=== PATIENT | male | born 1990 | race Caucasian/White ===

== ENCOUNTER 2020-04-02 10:32 | Emergency (ER) | payer OTHER, SELFPAY ==
[2020-04-02] VITALS (14 sets, daily range): BP systolic 140–168; BP diastolic 66–125; PULSE 73–93; RESP 10–20; TEMP 36.4; O2SAT 98–100
--- NOTE | ~2020-04-02 | XR_ITS ---
EXAMINATION: XR chest 2V EXAM DATE: 04/02/2020 11:20 INDICATION: Midsternal chest pressure, gas. COVID diagnosed one week ago. TECHNIQUE: Frontal and lateral projections of the chest obtained and reviewed. Comparison is made to prior examination from 04/25/2019. FINDINGS: The lungs are clear. There are no pleural effusions. The cardiomediastinal silhouette is within normal limits. There is no pneumothorax suspected. The bones and soft tissues are unremarkab le. IMPRESSION: No focal airspace disease. Reviewed, dictated and finalized at location A. ECT MANAGEMENT IT SPECIALIST IMPRESSION: No focal airspace disease.
--- NOTE | 2020-04-02 10:37 | ECG_ITS ---
Measurements Intervals Stanley Rate: 79 P: 50 HI: 122 QRS: 53 QRSD: 95 T: 49 QT: 334 QTc: 384 Interpretive Statements SINUS RHYTHM NORMAL ECG Electronically Signed On 04-02-2020 13:24:31 HAZARDOUS MATERIALS DRIVER by Mariano Villatoro D.O.
[2020-04-02 11:10] LABS: Basophils Absolute Auto 0.1 K/mm3 (0.0-0.1); Basophils Percent Auto 0.7 % (0.2-1.2); Eosinophils Absolute Auto 0.5 K/mm3 (0-0.3); Eosinophils Percent Auto 5.2 % (0-4.4); Hematocrit 45.4 % (42.0-52.0); Hemoglobin 15.7 g/dL (14.0-18.0); Immature Granulocyte Absolute 0.04 K/mm3 (0.00-0.031); Immature Granulocyte Percent A 0.5 % (0-0.5); Lymphocytes Absolute Auto 1.82 K/mm3 (0.9-3.2); Lymphocytes Percent Auto 20.5 % (18.3-44.2); Mean Corpuscular HGB Conc 34.6 g/dl (32-36); Mean Corpuscular Hemoglobin 30.4 pg (26-34); Mean Platelet Volume 9.6 fl (7.4-10.4); Monocytes Absolute Auto 0.7 K/mm3 (0.1-0.6); Monocytes Percent Auto 7.7 % (2.6-8.5); Neutrophils Absolute Auto 5.8 K/mm3 (1.3-6.7); Neutrophils Percent Auto 65.4 % (45.5-73.1); Platelet Count Result 348 k/mm3 (150-375); Red Blood Count 5.16 M/mm3 (4.6-6.20); Red Cell Distribution Width 11.9 % (11.5-14.5); White Blood Count 8.9 K/mm3 (4.5-10.0)
[2020-04-02 11:21] LABS: INR 1.1; Partial Thromboplastin Time 25.5 SECONDS (22.3-36.8); Prothrombin Time 15.2 Seconds (11.1-14.7)
[2020-04-02 11:22] LABS: Anion Gap 8 mmol/L (8-16); Blood Urea Nitrogen 12 mg/dL (9-20); Calcium 9.1 mg/dL (8.4-10.2); Carbon Dioxide 28 mmol/L (22-30); Chloride 105 mmol/L (98-107); Estimated CRCL calculation 124 ml/min; Estimated Glomerular Filt Rate > 60; Glucose 109 mg/dL (75-110); Potassium 4.3 mmol/L (3.4-5.0); Sodium 141 mmol/L (137-145)
[2020-04-02 11:34] LABS: Troponin I < 0.012 ng/mL (0.000-0.034)
--- NOTE | 2020-04-02 13:16 | ED.CHESTPAIN ---
HPI - Chest Pain General Chief Complaint: Chest Pain Stated Complaint: burping and heaviness in my chest Time Seen by Provider: 04/02/20 12:33 Source: patient Mode of arrival: ambulatory Limitations: no limitations History of Present Illness HPI narrative: This is a 29-year-old male that presents the emergency department for an episode of chest pain this morning. Reports he was eating breakfast and had sudden onset sharp substernal chest pain. Reports this lasted for about 10 to 15 seconds and was relieved on its own. Reports he has had intermittent chest pains and feelings of shortness of breath over the last couple of weeks which she has attributed to anxiety. Did recently have coronavirus. Denies any current fever, cough, chest pain, shortness of breath. Related Data Allergies Allergy/AdvReac Type Severity Reaction Status Date / Time No Known Allergies Allergy Mild Verified 04/02/20 12:51 Review of Systems Review of Systems: Narrative: CONSTITUTIONAL: Denies fever CARDIOVASCULAR: Denies chest pain, or edema. RESPIRATORY: Denies cough or dyspnea. All systems reviewed & are unremarkable except as noted in HPI and below PMFSH Past Medical History Medical History (Updated 04/02/20 @ 14:42 by Kelly Garcia PA-C) Anxiety Social History Social History (Updated 04/25/19 @ 14:08 by GAEL Cade) Smoking status: Never smoker Alcohol intake: current Substance use: never Gender identity (if verbalized by the patient): Male Exam Narrative: Exam Narrative: GENERAL: Well-appearing, well-nourished, and in no acute distress. HEAD: Normocephalic, atraumatic. EYES: EOMI. ENT: Nares clear, no rhinorrhea or epistaxis. Mucous membranes moist. Oropharynx without tonsillar hypertrophy exudate or other lesions. Bilateral TMs pearly bazan non-bulging NECK: Supple. No adenopathy or masses. CHEST: Clear to auscultation. No respiratory distress. No wheezes rales or rhonchi HEART: Regular rate and rhythm. No murmur heard. Normal peripheral pulses. EXTREMITIES: Normal range of motion. No edema. SKIN: Warm, dry, no rash. NEURO: No focal deficits. Alert and oriented x3. PSYCH: Normal mood and affect Course Vital Signs Vital signs: Vital Signs Temperature 97.6 F 04/02/20 10:37 Pulse Rate 93 04/02/20 10:37 Respiratory Rate 16 04/02/20 10:37 Blood Pressure 153/94 H 04/02/20 10:37 Pulse Oximetry 99 04/02/20 10:37 Temperature 97.6 F 04/02/20 10:37 Pulse Rate 77 04/02/20 13:43 Respiratory Rate 16 04/02/20 13:43 Blood Pressure 160/100 H 04/02/20 13:43 Pulse Oximetry 99 04/02/20 13:43 MDM - Chest Pain MDM Narrative Medical decision making narrative: Patient presents the emergency department for an episode of chest pain this morning. He is afebrile and nontoxic-appearing. Vitals are normal other than blood pressure is elevated to the 150s to 160s systolic. Patient was instructed to follow-up with his primary for this. CBC and metabolic panel without concerning findings. Baseline and 3-hour troponin are negative. No concerning changes on EKG. D-dimer is not elevated. Chest x-ray is without acute abnormalities. Patient was updated on case findings. He is stable and felt appropriate for further outpatient evaluation. His heart score is a 1. He was given warnings to return to the ER Lab Data Attestation: I reviewed the patient's lab results. Result diagrams: 04/02/20 11:01 04/02/20 11:01 Labs: Lab Results 04/02/20 04/02/20 04/02/20 Range/Units 11:01 11:01 11:01 WBC 8.9 (4.5-10.0) K/mm3 RBC 5.16 (4.6-6.20) M/mm3 Hgb 15.7 (14.0-18.0) g/dL Hct 45.4 (42.0-52.0) % MCV 88.0 (80-100) fl MCH 30.4 (26-34) pg MCHC 34.6 (32-36) g/dl RDW 11.9 (11.5-14.5) % Plt Count 348 (150-375) k/mm3 MPV 9.6 (7.4-10.4) fl Immature Gran % (Auto) 0.5 (0-0.5) % Neut % (Auto) 65.4 (45.5-73.1) % Lymph % (Auto)
[2020-04-02 13:48] LABS: Alanine Aminotransferase 58 U/L (4-50); Albumin Level 4.6 g/dL (3.5-5.1); Alkaline Phosphatase 51 U/L (38-126); Aspartate Amino Transferase 38 U/L (17-59); Bilirubin,Total 0.5 mg/dL (0.2-1.3); D Dimer 0.36 ug/mL (<0.48); Lipase 123 U/L (23-300)
[2020-04-02 14:00] LABS: Troponin I < 0.012 ng/mL (0.000-0.034)
== END 2020-04-02 15:20 | disposition home or self-care (01) ==
PROVIDERS: General Practice; Physician Assistant; Emergency Provider Emergency Medicine; PCP Family Medicine
DX: R07.2 Precordial pain (principal); I10 Essential (primary) hypertension; Z86.19 Personal history of other infectious and parasitic diseases
CPT/HCPCS: 36415; 71046; 80048; 80076; 83690; 84484; 85025; 85380; 85610; 85730; 93005; 99284

== ENCOUNTER 2020-08-20 10:04 | Outpatient (CLI) | payer OTHER, SELFPAY ==
--- NOTE | ~2020-08-20 | CT_ITS ---
EXAMINATION: CT brain wo con DATE: 08/20/2020 10:41 INDICATION: Primary thunderclap headache TECHNIQUE: Computed tomography (CT) of the head was performed without intravenous contrast. The mA wa s adjusted according to patient size. Iterative reconstruction technique was employed. Exam dose: 52 9.67 mGy-cm total exam DLP. COMPARISON: None FINDINGS: No intracranial mass lesion or hemorrhage or cerebrovascular accident. No midline shift or mass effect. Normal ventricular size. Normal bazan-white matter differentiation. No subdural or epidur al hematoma. No fracture or bone destruction of the cranial vault. IMPRESSION: Negative Reviewed, dictated and finalized at Location A. Reviewed, dictated and finalized at location A. IMPRESSION: Negative
== END 2020-08-20 10:05 | disposition home or self-care (01) ==
PROVIDERS: PCP Family Medicine; Visit Provider Family Medicine
DX: G44.53 Primary thunderclap headache (principal)
CPT/HCPCS: 70450

== ENCOUNTER → 2021-04-07 08:50 | Outpatient (CLI) | payer OTHER, SELFPAY ==
[2021-04-07 21:05] LABS: SARS-CoV-2 RNA PCR Positive
== END ==
PROVIDERS: PCP Family Medicine; Visit Provider Family Medicine
DX: U07.1 COVID-19 (principal)
CPT/HCPCS: C9803; U0003; U0005

== ENCOUNTER 2024-08-11 06:53 | Emergency (ER) | payer OTHER, SELFPAY ==
--- OUTSIDE RECORDS SUMMARY | 2024-08-11 06:55 | XMS_ITS | Referral Summary ---
Author Organization [facility] Address [address] [place] [id number] Care Team Providers Care Crowning Inspector Name Role Phone Sherwin Plata MD Primary Care Provider [phone] Encounters Date Type Department Care Team Description 07/30/2024 7:55 [place] [phone] Testing for genetic disease carrier status 07/27/[address] [facility] Pediatric Genetics [facility] 2nd [place] [phone] Elana Jernigan MD Testing for genetic disease carrier status (Primary Dx) 07/26/[address] [facility] [address] [place] [address] Elana Jernigan MD from Last 3 Months Social History Tobacco Use Types Packs/Day Years Used Date Smoking Tobacco: Never Assessed Sex and Gender Information Value Date Recorded Sex Assigned at Not on file Legal Sex Male 7:49 PM CDT Gender Identity Not on file Sexual Orientation Not on file Plan of Treatment Not on file Procedures Procedure Name Priority Date/Time Associated Diagnosis Comments GENOMICS TRACKING ORDER STAT 07/30/2024 8:04 AM CDT Testing for genetic disease carrier status GENOMICS ([facility]) STAT 07/27/2024 12:00 AM CDT Testing for genetic disease carrier status from Last 3 Months Results * Genomics Specimen Tracking Order Blood (07/30/2024 8:04 AM CDT) Genomics Tracking Order Received Comment:Testing performed by : [facility], [address] [facility], [place]., [address] Blood 07/30/2024 8:04 AM CDT 08/05/2024 11:22 AM CDT Narrative [facility] - 08/05/2024 11:22 AM CDT Please read the Genomics Epic requisition for specimen collection requirements. us Elana Jernigan MD LAB BODY FLUIDS AND STOOLS O RDERABLES Final Result [facility] Department [place] [address] * Genomics ([facility]) (07/27/2024 12:00 AM CDT) Peripheral Blood For Pathologist Review 07/27/2024 07/30/2024 Narrative 08/07/2024 12:01 PM CDT REPORT IMAGES AND/OR SCANNED DOCUMENTS ONLY VIEWABLE IN PDF FORMAT us Notinfile Unknown LAB GENETIC TESTING Final Resu lt from Last 3 Months Insurance [facility] CHOICE PLUS Care Teams Crowning Inspector Relationship Specialty Start Date End Date Sherwin Plata MD [address] [place] [phone] PCP - General Family Medicine 07/30/24
--- OUTSIDE RECORDS SUMMARY | 2024-08-11 06:55 | XMS_ITS | Clinical Summary ---
Author Organization [facility] Address [address] [place] [phone] Care Team Providers Care Accounting Officer Name Role Phone Sherwin Plata MD Primary Care Provider [phone] Encounters Date Type Department Care Team Description 07/30/2024 7:55 [place] [phone] Testing for genetic disease carrier status 07/27/[address] [facility] Pediatric Genetics [facility] 2nd [place] [address] Elana Jernigan MD Testing for genetic disease carrier status (Primary Dx) 07/26/[address] [facility] Pediatric Genetics [address] [place] [address] Elana Jernigan MD from Last 3 Months Social History Tobacco Use Types Packs/Day Years Used Date Smoking Tobacco: Never Assessed Sex and Gender Information Value Date Recorded Sex Assigned at Not on file Legal Sex Male 7:49 PM CDT Gender Identity Not on file Sexual Orientation Not on file Plan of Treatment Health Maintenance Due Date Last Done Comments Depression Screening 1988 Hepatitis C Screening 1988 Varicella Vaccines (1 of 2 - 13+ 2-dose series) 2001 Hepatitis B Screening 2006 Regular Well Visit/Exam 18-64 2006 Covid-19 Vaccine ( season) 2023 07/09/2020, 06/10/2020 DTaP/Tdap/Td Vaccine (2 - Td or Tdap) 10/23/2030 10/23/2020 Influenza Vaccine Completed 12/25/2023, , 02/15/2019, Additional history exists HPV Vaccines Aged Out No longer eligi ble based on patient's age to complete this topic Pneumococcal vaccine <65 Aged Out No longer eligible based on patient's age to complete this topic Procedures Procedure Name Priority Date/Time Associated Diagnosis Comments GENOMICS TRACKING ORDER STAT 07/30/2024 8:04 AM CDT Testing for genetic disease carrier status GENOMICS ([facility]) STAT 07/27/2024 12:00 AM CDT Testing for genetic disease carrier status from Last 3 Months Results * Genomics Specimen Tracking Order Blood (07/30/2024 8:04 AM CDT) Genomics Tracking Order Received Comment:Testing performed by : [facility], [address] [place] [address]., [id number] Blood 07/30/2024 8:04 AM CDT 08/05/2024 11:22 AM CDT Narrative [facility] - 08/05/2024 11:22 AM CDT Please read the [facility] Epic requisition for specimen collection requirements. us Elana Jernigan MD LAB BODY FLUIDS AND STOOLS O RDERABLES Final Result [facility] Department [place] [address] * Genomics ([facility]) (07/27/2024 12:00 AM CDT) Peripheral Blood For Pathologist Review 07/27/2024 07/30/2024 Narrative 08/07/2024 12:01 PM CDT REPORT IMAGES AND/OR SCANNED DOCUMENTS ONLY VIEWABLE IN PDF FORMAT us Notinfile Unknown LAB GENETIC TESTING Final Resu lt from Last 3 Months Insurance [facility] CHOICE PLUS [place] [id number] Care Teams Accounting Officer Relationship Specialty Start Date End Date Sherwin Plata MD [address] [place] [address] PCP - General Family Medicine 07/30/24
[2024-08-11 06:58] VITALS: BP 117/69; PULSE 83; RESP 14; TEMP 36.6; O2SAT 100
--- NOTE | 2024-08-11 06:58 | ECG_ITS ---
Test Date: 2024-08-11 07:00:28 Measurements Intervals Clark Rate: 76 P: 44 FL: 126 QRS: 45 QRSD: 97 T: 38 QT: 354 QTc: 400 Interpretive Statements SINUS RHYTHM No previous ECG available for comparison Electronically Signed On 08-11-2024 16:04:57 CDT by Luís Jernigan
[2024-08-11 07:04] VITALS: BP 114/54; BP 117/69; PULSE 77; PULSE 82
[2024-08-11 07:07] VITALS: BP 114/54; PULSE 73; RESP 16; O2SAT 100
--- NOTE | 2024-08-11 07:08 | PC.NURSE ---
Attempted to preform orthostatic BPS on pt, pt reported he became very dizzy with position changes. Pt sitting on side of bed and became pale, diaphoretic, nauseous, dry heaving. Pt unable to stand, laid back down and laying bp was now 87/59
--- NOTE | 2024-08-11 07:17 | ED_ITS ---
HPI - Dizziness General Chief Complaint: Dizziness Stated Complaint: dizziness Time Seen by Provider: 08/11/24 07:14 Source: patient History of Present Illness HPI Narrative: 33 years old white male came to the ED complaining of intermittent feeling dizzy and lightheadedness for the last 2 days, he denies any fever or chills or nausea or vomiting. Patient's symptoms get worse when he is drooling over in bed or moving. History of anxiety, and a lot of stress lately. Related Data Home Medications ?Medication ?Instructions ?Recorded ?Confirmed ?Last Taken ?Type alprazolam 0.25 mg tablet (Xanax) 0.25 mg PO QHS PRN 05/13/22 06/19/24 Unknown History fluoxetine 10 mg capsule 10 mg PO BID 12/08/22 06/19/24 Unknown History Allergies Allergy/AdvReac Type Severity Reaction Status Date / Time No Known Allergies Allergy Mild Verified 08/11/24 06:54 Review of Systems 2 Review of Systems: All systems reviewed & are unremarkable except as noted in HPI and below PMFSH Past Medical History Medical History Mixed hyperlipidemia Anxiety Family History Family History Father Hypertension Mother No problems noted. Social History Social History Smoking status: Never smoker Alcohol intake: current Drinks per week: 10 Alcohol use details: socially Substance use: never Substance use type: does not use Do You Feel Safe in your Home?: Yes Lack of Transportation: No Lack of Food: Never True Current Housing: I Have Housing Concerned About Future Housing: No Difficulty Paying Gas/Electric Bills: No Difficulty Paying for Meds: No Currently Unemployed: No Education: Bachelor's Degree Difficulty w/ Childcare or Family Care: No Living arrangements: with family Occupation/Education: occupation Gender identity (if verbalized by the patient): Male Sexual Orientation (if Verbalized by the Patient): Straight or Heterosexual Exam 2 Narrative: General appearance: Well-developed, well-nourished, shaking all over, restless Skin: Normal color Head: Normocephalic, nontraumatic Eyes: Clear conjunctiva ENT: Oropharynx normal, ears normal, nose normal Neck: Supple, nontender Chest and respiratory: Airway patent, no respiratory distress, no accessory muscle use Heart: Regular rate/rhythm Abdomen: Soft, nontender, no organomegaly, quiet bowel sounds Vascular: Normal peripheral pulses, normal capillary refill. Musculoskeletal: Normal range of motion, nontender back Neurologic: Alert and oriented ?3, [employer] is normal as tested, no gross motor deficit Course Vital Signs Vital signs: Vital Signs Temperature 36.6 C 08/11/24 06:58 Pulse Rate 83 08/11/24 06:58 Respiratory Rate 14 08/11/24 06:58 Blood Pressure 117/69 08/11/24 06:58 Pulse Oximetry 100 08/11/24 06:58 Oxygen Delivery Room Air 08/11/24 06:58 Temperature 36.6 C 08/11/24 09:16 Pulse Rate 93 08/11/24 09:16 Respiratory Rate 18 08/11/24 09:16 Blood Pressure 128/84 08/11/24 09:16 Pulse Oximetry 100 08/11/24 09:16 Oxygen Delivery Room Air 08/11/24 06:58 MDM - Dizziness MDM Narrative Medical decision making narrative: Differential diagnosis include anxiety like symptoms, benign positional vertigo Blood workup today includes CBC, CMP showed insignificant abnormalities EKG on arrival showed normal sinus rhythm Patient's symptom resolved after 1 mg of Ativan IV Differential Diagnosis Differential diagnosis: Likely other (As above) Medical Records Attestation: I reviewed the patient's medical records. Lab Data Attestation: I reviewed the patient's lab results. 08/11/24 07:06 08/11/24 07:06 Labs: Lab Results 08/11/24 Range/Units 07:06 WBC 8.9 (4.5-10.0) K/mm3 RBC 5.10 (4.6-6.20) M/mm3 Hgb 15.3 (14.0-18.0) g/dL Hct 44.9 (42.0-52.0) % MCV 88.0 (80-100) fl MCH 30.0 (26-34) pg MCHC 34.1 (32-36) g/dl RDW 11.9 (11.5-14.5) % Plt Count 302 (150-375) k/mm3 MPV 9.9 (7.4-10.4) fl Immature Gran % (Auto) 0.2 (0-0.5) % Neut % (Auto) 62.6 (45.5-73.1) % Lymph % (Auto) 23.0 (18.3-44.2) % Ellis % (Auto) 8.8 H (2.6-8.5) % Eos % (Auto) 4.7 H (0-4.4) % Baso % (Auto) 0.7 (0.2-1.2) % Lymph # (Auto) 2.05 (0.9-3.2) K/mm3 Ellis # (Auto) 0.8 H (0.1-0.6) K/mm3 Eos # (Auto) 0.4 H (0-0.3) K/mm3 Baso # (Auto) 0.1 (0.0-0.1) K/mm3 Abs Immat Gran (auto) 0.02 (0.00-0.031) K/mm3 Absolute Neuts (auto) 5.6 (1.3-6.7) K/mm3 Absolute Nucleated RBC 0.000 (0.0-0.012) K/mm3 Nucleated RBC % 0.0 (0.0-0.2) % Sodium 140 (137-145) mmol/L Potassium 3.8 (3.4-5.0) mmol/L Chloride 104 (98-107) mmol/L Carbon Dioxide 26 (22-30) mmol/L Anion Gap 10 (4-12) mmol/L BUN 14 (9-20) mg/dL Creatinine 0.83 (0.7-1.3) mg/dL Estim Creat Clear Calc 130 ml/min Estimated GFR > 60 (59 - ) Glucose 110 (65-110) mg/dL Calcium 8.8 (8.4-10.2) mg/dL Total Bilirubin 0.9 (0.2-1.3) mg/dL AST 38 (17-59) U/L ALT 48 (6-50) U/L Alkaline Phosphatase 60 (38-126) U/L Total Protein 8.0 (6.3-8.2) g/dL Albumin 4.7 (3.5-5.1) g/dL Critical Care Time Critical Care Time Critical Care Time: No Discharge Plan Discharge Clinical Impression: Stress, Dizziness Patient Disposition: Home Condition: Improved Instructions: Stress (ED), Dizziness (ED) Additional Instructions: Return if symptoms are worsening , call your family physician for appointment, take Tylenol as as needed for aches and pain, continue home medications. Patient Language: Spanish Prescriptions: New diazepam [Valium] 5 mg tablet 5 mg PO TID PRN (Reason: anxiety) Qty: 15 0RF meclizine 25 mg tablet 25 mg PO TID PRN (Reason: dizziness) Qty: 20 0RF No Action fluoxetine 10 mg capsule 10 mg PO BID alprazolam [Xanax] 0.25 mg tablet 0.25 mg PO QHS PRN Follow-up/Referrals: Sherwin Plata MD [Primary Care Provider] - Stand Alone Forms: Work/School Release IP
--- OUTSIDE RECORDS SUMMARY | 2024-08-11 07:18 | XMS_ITS | Referral Summary ---
Author Organization [facility] Address [address] [place] [phone] Care Team Providers Care Blindstitch Machine Operator Name Role Phone Sherwin Plata MD Primary Care Provider [phone] Encounters Date Type Department Care Team Description 07/30/2024 7:55 [place] [phone] Testing for genetic disease carrier status 07/27/2024 Orders Only [facility] Pediatric Genetics [facility] 2nd [place] [phone] Elana Jernigan MD Testing for genetic disease carrier status (Primary Dx) 07/26/2024 Telephone [facility] Genetics [address] [place] [address] Elana Jernigan MD from Last [...] Testing for genetic disease carrier status GENOMICS ([facility]) STAT 07/27/2024 12:00 AM CDT Testing for genetic disease carrier status from Last 3 Months Results * Genomics Specimen Tracking Order Blood (07/30/2024 8:04 AM CDT) Genomics Tracking Order Received Comment:Testing performed by : [facility], [address] [facility], [place]., [address] Blood 07/30/2024 8:04 AM CDT 08/05/2024 11:22 AM CDT Narrative [facility] - 08/05/2024 11:22 AM CDT Please read the Genomics Epic requisition for specimen collection requirements. us Elana Jernigan MD LAB BODY FLUIDS AND STOOLS O RDERABLES Final Result [facility] Department [place] [address] * Genomics ([facility]) (07/27/2024 12:00 AM CDT) Peripheral Blood For Pathologist Review 07/27/2024 07/30/2024 Narrative 08/07/2024 12:01 PM CDT REPORT IMAGES AND/OR SCANNED DOCUMENTS ONLY VIEWABLE IN PDF FORMAT us Notinfile Unknown LAB GENETIC TESTING Final Resu lt from Last 3 Months Insurance [facility] CHOICE PLUS Care Teams Blindstitch Machine Operator Relationship Specialty Start Date End Date Sherwin Plata MD [address] [place] [phone] PCP - General Family Medicine 07/30/24
--- OUTSIDE RECORDS SUMMARY | 2024-08-11 07:18 | XMS_ITS | Clinical Summary ---
Author Organization [facility] Address [address] [place] [phone] Care Team Providers Care It Integration Architect Name Role Phone Sherwin Plata MD Primary Care Provider [phone] Encounters Date Type Department Care Team Description 07/30/2024 7:55 [place] [phone] Testing for genetic disease carrier status 07/27/2024 Orders Only [facility] Pediatric Genetics [facility] 2nd [place] [address] Elana Jernigan MD Testing for genetic disease carrier status (Primary Dx) 07/26/2024 Telephone [facility] Pediatric Genetics [address] [place] [address] Elana Jernigan MD from Last [...] Tracking Order Received Comment:Testing performed by : [facility], [address] [place] [address]., [id number] Blood 07/30/2024 8:04 AM CDT 08/05/2024 11:22 AM CDT Narrative [facility] - 08/05/2024 11:22 AM CDT Please read the [facility] Epic requisition for specimen collection requirements. us Elana Jernigan MD LAB BODY FLUIDS AND STOOLS O RDERABLES Final Result [facility] Department [place] [address] * Genomics ([facility]) (07/27/2024 12:00 AM CDT) Peripheral Blood For Pathologist Review 07/27/2024 07/30/2024 Narrative 08/07/2024 12:01 PM CDT REPORT IMAGES AND/OR SCANNED DOCUMENTS ONLY VIEWABLE IN PDF FORMAT us Notinfile Unknown LAB GENETIC TESTING Final Resu lt from Last 3 Months Insurance [facility] CHOICE PLUS [place] [id number] Care Teams It Integration Architect Relationship Specialty Start Date End Date Sherwin Plata MD [address] [place] [address] PCP - General Family Medicine 07/30/24
[2024-08-11 07:20] LABS: Basophils Absolute Auto 0.1 K/mm3 (0.0-0.1); Basophils Percent Auto 0.7 % (0.2-1.2); Eosinophils Absolute Auto 0.4 K/mm3 (0-0.3); Eosinophils Percent Auto 4.7 % (0-4.4); Hematocrit 44.9 % (42.0-52.0); Hemoglobin 15.3 g/dL (14.0-18.0); Immature Granulocyte Absolute 0.02 K/mm3 (0.00-0.031); Immature Granulocyte Percent A 0.2 % (0-0.5); Lymphocytes Absolute Auto 2.05 K/mm3 (0.9-3.2); Mean Corpuscular HGB Conc 34.1 g/dl (32-36); Mean Platelet Volume 9.9 fl (7.4-10.4); Monocytes Absolute Auto 0.8 K/mm3 (0.1-0.6); Monocytes Percent Auto 8.8 % (2.6-8.5); Neutrophils Absolute Auto 5.6 K/mm3 (1.3-6.7); Neutrophils Percent Auto 62.6 % (45.5-73.1); Platelet Count Result 302 k/mm3 (150-375); Red Cell Distribution Width 11.9 % (11.5-14.5); White Blood Count 8.9 K/mm3 (4.5-10.0)
[2024-08-11 07:28] LABS: Alanine Aminotransferase 48 U/L (6-50); Albumin Level 4.7 g/dL (3.5-5.1); Alkaline Phosphatase 60 U/L (38-126); Anion Gap 10 mmol/L (4-12); Aspartate Amino Transferase 38 U/L (17-59); Bilirubin,Total 0.9 mg/dL (0.2-1.3); Blood Urea Nitrogen 14 mg/dL (9-20); Calcium 8.8 mg/dL (8.4-10.2); Carbon Dioxide 26 mmol/L (22-30); Chloride 104 mmol/L (98-107); Estimated CRCL calculation 130 ml/min; Estimated Glomerular Filt Rate > 60; Glucose 110 mg/dL (65-110); Potassium 3.8 mmol/L (3.4-5.0); Sodium 140 mmol/L (137-145)
[2024-08-11 08:45] VITALS: BP 130/82; PULSE 102; RESP 18; TEMP 36.6; O2SAT 99
[2024-08-11 09:01] VITALS: BP 134/78; PULSE 74; RESP 12; O2SAT 100
[2024-08-11] MEDS: LORazepam INJ (*CRX) 2 MG/ML VIAL 1 MG IV PUSH (09:05)
[2024-08-11 09:16] VITALS: BP 128/84; PULSE 93; RESP 18; TEMP 36.6; O2SAT 100
== END 2024-08-11 09:36 | disposition home or self-care (01) ==
PROVIDERS: Emergency Medicine; Emergency Provider Emergency Medicine; PCP Family Medicine
DX: F43.9 Reaction to severe stress, unspecified (principal); R42 Dizziness and giddiness; E78.2 Mixed hyperlipidemia; F41.9 Anxiety disorder, unspecified
CPT/HCPCS: 36415; 80053; 85025; 93005; 96374; 99284; J2060